=== PATIENT | female | born 1940 | race Two or more races ===

== ENCOUNTER 2020-04-04 06:54 | Emergency (ER) | payer MEDICARE, OTHER ==
[~2020-04-04] VITALS: Ht 149.9 cm; Wt 54.4 kg
--- NOTE | 2020-04-04 07:19 | NUR ---
[id number] FROM HOME C/O BACK PAIN S/P WITNESSED MECHANICAL FALL [employer]PA[employer], TO ER BED 10, HOOKED TO BP CUFF AND POX. CHANGED TO HOSP GOWN, WARM BLANKET PROVIDED, PATIENT AAO x 4, BREATHING EVEN AND UNLABORED, NAD NOTED. SEEN BY DR PRUETT
[2020-04-04] MEDS ORDERED: ONDANSETRON 4 MG TAB.RAPDIS SL ONE (07:30)
[2020-04-04] MEDS ORDERED: MORPHINE SULFATE INJ 2 MG/ML DISP.SYRIN IM ONE (07:30)
[2020-04-04] MEDS ORDERED: MORPHINE SULFATE INJ 4 MG/ML DISP.SYRIN ONE (08:15)
[2020-04-04] MEDS ORDERED: ONDANSETRON 4 MG TAB.RAPDIS ONE (08:16)
--- NOTE | 2020-04-04 08:55 | NUR ---
PATIENT ABLE TO AMBULATE WITH MINIMAL ASSISTANCE
--- NOTE | 2020-04-04 10:00 | NUR ---
Patient discharged to home with daughter in law in stable condition. Written and verbal after care instructions given. Patient verbalizes understanding of instruction.
--- NOTE | 2020-04-04 10:02 | NUR ---
PATIENT PICKED UP BY DAUGHTER IN LAW. ASSISTED PATIENT OUTSIDE FACILITY VIA WHEELCHAIR.
[2020-04-04 10:03] VITALS: BP 132/60
== END 2020-04-04 10:07 | disposition home or self-care (01) ==
LOC: ER 06:56
DX: S30.0XXA Contusion of lower back and pelvis, initial encounter (principal); K80.80 Other cholelithiasis without obstruction; N20.0 Calculus of kidney; I13.2 Hypertensive heart and chronic kidney disease with heart failure and with stage 5 chronic kidney disease, or end stage renal disease; I50.9 Heart failure, unspecified; E11.22 Type 2 diabetes mellitus with diabetic chronic kidney disease; N18.6 End stage renal disease; K21.9 Gastro-esophageal reflux disease without esophagitis; Z88.8 Allergy status to other drugs, medicaments and biological substances; Z99.2 Dependence on renal dialysis; W18.09XA Striking against other object with subsequent fall, initial encounter; Y93.89 Activity, other specified; Y92.89 Other specified places as the place of occurrence of the external cause; Y99.8 Other external cause status
CPT/HCPCS: 72131; 96372; 99284; J2270; Q0162